=== PATIENT | female | born 1940 | race Hispanic/Latino ===

== ENCOUNTER 2018-06-07 12:42 | Emergency (ER) | payer MEDICARE ==
[~2018-06-07] VITALS: Ht 149.9 cm; Wt 51.7 kg
--- OUTSIDE RECORDS SUMMARY | 2018-06-07 12:44 | XMS REPORT ---
Author Author [facility] Address Unknown Phone Unavailable Care Team Providers Care Speech Language Pathologist Name Role Phone PAULETTE HUGHES Unavailable Unavailable Problems This patient has no known problems. Allergies, Adverse Reactions, Alerts This patient has no known allergies or adverse reactions. Medications This patient has no known medications. Results Test Description Test Time Test Comments Text Results Atomic Results Result Comments CT BRAIN WO [place] [address] Patient Name: RAYMUNDO DOMINGO MR #: [id number] : 1940 Age/Sex: 76/F Req #: [id number] Adm Physician: Ordered by: PAULETTE HUGHES MD Report #: [id number] Location: ER Room/Bed: Procedure: [id number] CT/CT BRAIN WO Exam Date: 03/14/17 Exam Time: 1651 REPORT STATUS: Signed History: Pain Comparison studies: None Technique: Axial images were obtained from the skull base to the vertex. Coronal and sagittal reconstructions obtained from the axial data. Findings: Scalp/skull: No abnormalities. No fractures, blastic or lytic lesions. Extra-axial spaces: No masses. No fluid collections. Brain sulci: Appropriate for age. Ventricles: Normal in size and configuration. No hydrocephalus. Parenchyma: No abnormal densities. No masses, hemorrhage, acute or chronic cortical vascular insults. Sellar/suprasellar region: No abnormalities Craniocervical junction: Patent foramen magnum. No Chiari one malformation. Incidental atherosclerotic calcifications in the carotid siphons. IMPRESSION: No abnormalities. Signed by: Dr. Ganesh Fernandez M.D. on 03/14/2017 5:23 PM Dictated By: GANESH FERNANDEZ MD, MD 22 Transcribed By: EDISON on 03/14/171722 COPY TO: PAULETTE HUGHES MD
[2018-06-07] MEDS ORDERED: ALBUTEROL/IPRATROPIUM 3 ML NEB NEB ONE (13:00)
[2018-06-07] MEDS ORDERED: PREDNISONE 20 MG TAB PO NR (13:00)
--- NOTE | 2018-06-07 13:29 | Diagnostic Imaging Report ---
EXAMINATION: PA and lateral views of the chest. COMPARISON: Chest 2 views 10/19/2016 CLINICAL HISTORY: Feels sick, nasal congestion DISCUSSION: Lines/tubes: None. Lungs: The lungs are well inflated and clear. There is no evidence of pneumonia or pulmonary edema. Pleura: There is no pleural effusion or pneumothorax. Heart and mediastinum: Borderline enlarged cardiac silhouette. Pulmonary vasculature is normal. Rounded lucency in the retrocardiac region likely reflects a hiatal hernia. Bones and soft tissues: No acute bony abnormalities. Stable anterior wedging of a lower thoracic vertebral body. Multiple metallic clips are noted in the region of the GE junction. IMPRESSION: Borderline enlarged cardiac silhouette, without acute cardiopulmonary abnormalities. Signed by: Dr. Augusto Velazquez M.D. on 06/07/2018 1:25 PM
--- NOTE | 2018-06-07 13:36 | NUR ---
PATIENT IN HALLWAY RECEIVING BREATHING TX
[2018-06-07 13:47] LABS: INFLUENZAE A&B ANTIGEN (RAPID) NEGATIVE (NEGATIVE); STREPTOCOCCUS GRP A ANTIGEN NEGATIVE (NEGATIVE)
== END 2018-06-07 15:15 | disposition home or self-care (01) ==
LOC: ER 12:42
DX: R50.9 Fever, unspecified (principal); R05 Cough; M79.10 Myalgia, unspecified site
CPT/HCPCS: 71046; 83518; 87070; 87400; 93005; 99283; J7512

== ENCOUNTER 2018-06-15 11:41 | Emergency (ER) | payer MEDICARE ==
[~2018-06-15] VITALS: Ht 149.9 cm; Wt 51.7 kg
== END 2018-06-15 12:15 | disposition home or self-care (01) ==
LOC: ER 11:41
DX: R05 Cough (principal); J20.9 Acute bronchitis, unspecified
CPT/HCPCS: 99282